=== PATIENT | female | born 1975 | race Hispanic/Latino ===

== ENCOUNTER 2018-04-17 22:47 | Emergency (ER) | payer OTHER ==
[2018-04-17 22:52] VITALS: BMI 25.7
--- NOTE | 2018-04-17 23:09 | ED PDOC ---
Arrival/HPI - General Chief Complaint: Alcohol Ingestion Time Seen by Provider: 04/17/18 22:50 Historian: Patient - History of Present Illness Narrative History of Present Illness (Text): 04/17/18 23:09 Elizabeth Hicks is a 42 year old female, whose past medical history includes alcohol abuse and diabetes, who presents to the Emergency department brought in by EMS for public intoxication. Patient was found sitting on a porch inebriated. Patient admits to drinking alcohol tonight. Patient denies any somatic complaints. Symptom Onset: Gradual Symptom Course: Unchanged Activities at Onset: Light Context: Home Past Medical History - Provider Review Nursing Documentation Reviewed: Yes - Cardiac Hx Cardiac Disorders: No - Pulmonary Hx Respiratory Disorders: No - Neurological Hx Neurological Disorder: No - HEENT Hx HEENT Disorder: No - Renal Hx Renal Disorder: No - Endocrine/Metabolic Hx Endocrine Disorders: Yes Hx Diabetes Mellitus Type 2: Yes - Hematological/Oncological Hx Blood Disorders: No - Integumentary Hx Dermatological Disorder: No - Musculoskeletal/Rheumatological Hx Musculoskeletal Disorders: No - Gastrointestinal Hx Gastrointestinal Disorders: No - Genitourinary/Gynecological Hx Genitourinary Disorders: No - Psychiatric Hx Psychophysiologic Disorder: No Hx Substance Use: No Family/Social History - Physician Review Nursing Documentation Reviewed: Yes Family/Social History: Unknown Family HX Smoking Status: Never Smoked Hx Alcohol Use: No Hx Substance Use: No Allergies/Home Meds Allergies/Adverse Reactions: Allergies No Known Allergies Allergy (Verified 04/16/18 10:48) Home Medications: Home Meds Medication Instructions Recorded Confirmed Unobtainable 04/17/18 04/17/18 Review of Systems - Physician Review All systems were reviewed & negative as marked: Yes - Review of Systems Constitutional: Normal. absent: Fevers Eyes: Normal ENT: Normal Respiratory: Normal. absent: SOB, Cough Cardiovascular: absent: Chest Pain Gastrointestinal: Normal. absent: Abdominal Pain, Diarrhea, Nausea, Vomiting Genitourinary Female: Normal. absent: Dysuria, Frequency, Hematuria, Urine Output Changes Musculoskeletal: Normal. absent: Back Pain, Neck Pain Skin: Normal. absent: Rash Neurological: Normal. absent: Headache, Dizziness Endocrine: Normal Hemo/Lymphatic: Normal Psychiatric: Normal Physical Exam Vital Signs Reviewed: Yes Vital Signs Temp Pulse Resp BP Pulse Ox 04/17/18 22:59 98.1 F 96 H 20 152/105 H 100 Temperature: Afebrile Blood Pressure: Normal Pulse: Regular Respiratory Rate: Normal Appearance: Positive for: Well-Appearing, Non-Toxic, Comfortable Pain Distress: None Mental Status: Positive for: Alert and Oriented X 3 - Systems Exam Head: Present: Atraumatic, Normocephalic Pupils: Present: PERRL Extroacular Muscles: Present: EOMI Conjunctiva: Present: Normal Mouth: Present: Moist Mucous Membranes Neck: Present: Normal Range of Motion. No: Meningeal Signs, MIDLINE TENDERNESS, Paraspinal Tenderness Respiratory/Chest: Present: Clear to Auscultation, Good Air Exchange. No: Respiratory Distress, Accessory Muscle Use Cardiovascular: Present: Regular Rate and Rhythm, Normal S1, S2. No: Murmurs Abdomen: No: Tenderness, Distention, Peritoneal Signs Back: Present: Normal Inspection Upper Extremity: Present: Normal Inspection. No: Cyanosis, Edema Lower Extremity: Present: Normal Inspection. No: Edema Neurological: Present: GCS=15, CN II-XII Intact, Speech Normal Skin: Present: Warm, Dry, Normal Color. No: Rashes Psychiatric: Present: Alert, Oriented x 3, Normal Insight, Normal Concentration Medical Decision Making ED Course and Treatment: 04/17/18 23:09 Impression: 42 year old female brought in for alcohol intoxication. Differential Diagnosis included but are not limited to: alcohol intoxication Plan: -- Reassess and disposition Prior Visits: Notes and results from previous visits were reviewed. On 04/16/2018, patient was seen in the Emergency department for alcohol intoxication. Pt was d/c home. Progress Notes: 04/18/18 03:00 Patient became uncooperative,attempting to ambulate from the ED requiring sedation to protect her from self harm. 04/18/18 07:00 Patient still remains drowsy/endorsed to /pending sobriety/final disposition - Scribe Statement The provider has reviewed the documentation as recorded by the Shereen Yan Provider Scribe Attestation: All medical record entries made by the Scribe were at my direction and personally dictated by me. I have reviewed the chart and agree that the record accurately reflects my personal performance of the history, physical exam, medical decision making, and the department course for this patient. I have also personally directed, reviewed, and agree with the discharge instructions and disposition. Disposition/Present on Arrival - Present on Arrival Any Indicators Present on Arrival: No History of DVT/PE: No History of Uncontrolled Diabetes: No Urinary Catheter: No History of Decub. Ulcer: No History Surgical Site Infection Following: None - Disposition Have Diagnosis and Disposition been Completed?: No Diagnosis: Alcohol intoxication Disposition Time: 07:00 Condition: STABLE Referrals: Indigo Gentile DO [Primary Care Provider] - Follow up with primary Forms: [employer] (Slovak)
[2018-04-18 02:01] VITALS: RESP 18
[2018-04-18 06:12] VITALS: O2SAT 98
--- NOTE | 2018-04-18 07:46 | ED PDOC ---
Physical Exam Vital Signs Reviewed: Yes Vital Signs Temp Pulse Resp BP Pulse Ox 04/18/18 07:24 85 18 119/72 98 04/18/18 06:10 90 18 123/77 98 04/18/18 02:01 89 18 135/89 100 04/17/18 22:59 98.1 F 96 H 20 152/105 H 100 Temperature: Afebrile Blood Pressure: Hypertensive (at 152/105) Pulse: Tachycardic (at 96) Respiratory Rate: Normal Finger Stick Blood Glucose: 115 Medical Decision Making ED Course and Treatment: 04/18/18 07:00 Progress notes: Case endorsed to me by Dr. Calderón, pending sobriety. Reassessed. Patient is able to ambulate and has stable gait. Patient has been observed for 9 hours. Patient is stable for discharge. - Medication Orders Current Medication Orders: Discontinued Medications Haloperidol Lactate (Haldol) 5 mg IM STAT STA; Protocol Stop: 04/18/18 03:06 Last Admin: 04/18/18 03:13 Dose: 5 mg IM Administration Charges Document 04/18/18 03:13 IT (Rec: 04/18/18 03:13 IT [id number]) Injection Site MAR Injection Site Left Deltoid Charges for Administration # of IM Administrations 1 Lorazepam (Ativan) 2 mg IM ONCE ONE Stop: 04/18/18 03:06 Last Admin: 04/18/18 03:13 Dose: 2 mg IM Administration Charges Document 04/18/18 03:13 IT (Rec: 04/18/18 03:13 IT [id number]) Injection Site MAR Injection Site Left Deltoid Charges for Administration # of IM Administrations 1 - Scribe Statement The provider has reviewed the documentation as recorded by the Scribe Elva Arandah All medical record entries made by the Scribe were at my direction and personally dictated by me. I have reviewed the chart and agree that the record accurately reflects my personal performance of the history, physical exam, medical decision making, and the department course for this patient. I have also personally directed, reviewed, and agree with the discharge instructions and disposition. Disposition/Present on Arrival - Present on Arrival Any Indicators Present on Arrival: No History of DVT/PE: No History of Uncontrolled Diabetes: No Urinary Catheter: No History of Decub. Ulcer: No History Surgical Site Infection Following: None - Disposition Have Diagnosis and Disposition been Completed?: Yes Diagnosis: Alcohol intoxication Disposition: HOME/ ROUTINE Disposition Time: 08:30 Patient Problems: Current Active Problems Problem Status Onset Alcohol intoxication Acute Condition: STABLE Discharge Instructions (ExitCare): Alcohol Abuse and Alcoholism (DC) Additional Instructions: return to er with worsening symptoms or concerns. Referrals: Indigo Gentile DO [Primary Care Provider] - Follow up with primary Forms: [employer] (Telugu)
[2018-04-18 12:08] VITALS: BP 112/57; PULSE 82; TEMP 98
== END 2018-04-18 09:05 | disposition home or self-care (01) ==
LOC: ED 22:47
DX: F10.129 Alcohol abuse with intoxication, unspecified (principal); E11.9 Type 2 diabetes mellitus without complications
CPT/HCPCS: 96372; 99283; J1630; J2060